=== PATIENT | male | born 1955 | race Two or more races ===

== ENCOUNTER 2025-05-03 23:59 | Emergency (ER) | payer MEDICARE, MEDICAID ==
[~2025-05-03] VITALS: Ht 175.3 cm; Wt 72.0 kg
[2025-05-04] VITALS: PULSE 60
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
[2025-05-04] MEDS: IBUPROFEN 600 MG TAB PO ONE (03:20)
[2025-05-04 03:25] VITALS: BP 132/76; RESP 14; TEMP 98.3; O2SAT 95
== END 2025-05-04 03:33 | disposition home or self-care (01) ==
LOC: EDBD 23:59 → ER 05-04 00:07
DX: S41.112A Laceration without foreign body of left upper arm, initial encounter (principal); S16.1XXA Strain of muscle, fascia and tendon at neck level, initial encounter; Y08.89XA Assault by other specified means, initial encounter; Y93.89 Activity, other specified; Y92.89 Other specified places as the place of occurrence of the external cause; Y99.8 Other external cause status
CPT/HCPCS: 72125